=== PATIENT | female | born 1990 | race Two or more races ===

== ENCOUNTER 2025-07-24 08:09 | Outpatient (RCR) | payer MEDICAID, SELFPAY ==
--- NOTE | 2025-07-19 14:20 | CTCCONSULT_ITS ---
Patient: JANAK SOTO I. : 1990 MR#: [id number] Page 3 of 5 CONSULTATION NOTE DATE OF CONSULTATION: 07/19/2025 NAME: JANAK SOTO I. ACCOUNT: [id number] : 1990 AGE: 34 REFERRING PHYSICIAN: Isaac Tom MD PRIMARY PHYSICIAN: REASON FOR VISIT: Right lung adenocarcinoma ONCOLOGY HISTORY: DIAGNOSIS: Malignant neoplasm of unspecified part of right bronchus or lung [ICD10] C34.91 DATE OF DIAGNOSIS: 06/27/2025 STAGE/TNM: Atleast stage 3 b TREATMENT HISTORY: Care?Plan Start?Date Cycle Day Intent NSC?Pemetrexd?500?mg/m*2,?CARBO?AUC?5 07/19/2025 1 21 Induction-Primary HISTORY OF PRESENT ILLNESS: 34-year-old female with new diagnsosi of lung cancer. Patient has been having cough and right arm pain and was told that it is her allergies. Patient got physical therapy . patient is loosing weight. No hx of smoking. About 26 pounds of weight loss. No smoking. No alcohol. 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 pantoprazole - 40 mg 1 As directed 2. Promethazine Dm - 6.25-15 mg/5 mL 5 mL As directed Medications Last Reconciled by Daniela Gant MD on 07/19/2025 ALLERGIES: seafood; seafood; seafood REVIEW OF SYSTEMS: A complete 14-point review of systems was performed and is negative except as noted in interval history. PHYSICAL EXAMINATION: VITAL SIGNS: Temperature?99.3, B/P?123/86, Height?61?inches, Oxygen?Saturation?97% Weight?185?lbs PAIN: 3 - Between mild and moderate pain ECOG Performance Status: 2 - Symptomatic; ambulatory; capable of self-care; >50% of waking hrs. not in bed GENERAL APPEARANCE: Appears well, in no apparent distress, appropriately interactive. HEENT: Normocephalic, no temporal wasting, normal conjunctiva, no scleral icterus, normal hearing, lips without lesions, neck vessels visible CARDIOVASCULAR: Not assessed. PULMONARY: Normal respiratory effort, no respiratory distress or use of accessory muscles, speaking in full sentences, no tachypnea. EXTREMITIES: No pedal edema or cyanosis. SKIN: Normal skin appearance. NEUROLOGIC: Alert and oriented x4. PSHYCHIATRIC: Appropriate affect, mood normal, behavior normal, intact thought and speech. 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 As we need insurance approval and do not provide inpatient chemotherapy Patient treatment may be delayed to 3 to 4 weeks. 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 Patient can follow-up with us after her initial treatment once chemo and radiation is approved and we can start treatment Dexamethasone given to reduce obstructive symptoms of SVC Nausea medicine prescription given Extensively educated on ER precautions given ORDERS: Order # Description [id number] Comprehensive Metabolic Panel - 12 + CBC with Auto Diff + [id number] MRI + Brain + With W/O Contrast [id number] Initial PET/CT of Skull to Mid-Thigh [id number] Infusion 2.5 Hours [id number] [facility] CDX [id number] CBC + Comprehensive Metabolic Panel + CEA [id number] Lab Appointment [id number] Follow Up Appointment [id number] Infusion 2.5 Hours [id number] CBC + Comprehensive Metabolic Panel + CEA [id number] Lab Appointment [id number] Follow Up Appointment [id number] Infusion 2.5 Hours [id number] CBC + Comprehensive Metabolic Panel + CEA [id number] Lab Appointment [id number] Follow Up Appointment [id number] Infusion 2.5 Hours [id number] CBC + Comprehensive Metabolic Panel + CEA [id number] Lab Appointment [id number] Follow Up Appointment [id number] Infusion 2.5 Hours [id number] CBC + Comprehensive Metabolic Panel + CEA [id number] Lab Appointment [id number] Follow Up Appointment [id number] Infusion 2.5 Hours [id number] CBC + Comprehensive Metabolic Panel + CEA [id number] Lab Appointment [id number] Follow Up Appointment RETURN TO CLINIC: I reviewed the diagnosis, prognosis, and recommended treatment/procedure options with the patient (and/or their legal construction representative), including the potential benefits, risks, side effects and alternative therapies. We also discussed the option of no treatment and the possibility of clinical trial participation, if applicable. All questions were addressed, and they demonstrated understanding. They provided informed consent to proceed with the proposed plan of care. BILLING AND COMPLIANCE: I reviewed external records from providers outside my specialty as summarized above. I spent a total of 50 minutes on this patient?s care on the day of their visit excluding time spent related to any billed procedures. This time includes time spent with the patient as well as time spent documenting in the medical record, reviewing patients records and tests, obtaining history, placing orders, communicating with other healthcare professionals, counseling the patient, family or caregiver, and/or care coordination for the diagnoses above. Electronically Signed by: Cj Vasquez MD T: 2:18 PM CC: PCP: Referring: Isaac Tom This document was completed utilizing speech recognition software. Grammatical errors, random word insertions, pronoun errors, and incomplete sentences are an occasional consequence of this system due to software limitations, ambient noise, and hardware issues. Any formal questions or concerns about the content, text or information contained within the body of this dictation should be directly addressed to the provider for clarification.
== END 2025-08-01 23:59 | disposition home or self-care (01) ==
LOC: SCTC 08:09
PROVIDERS: PCP Family Medicine; Referring Provider Nurse Anesthetist, Certified Registered; Visit Provider Radiology Therapeutic Radiology
DX: C34.11 Malignant neoplasm of upper lobe, right bronchus or lung (principal)
CPT/HCPCS: 77470; 99213; 99214; G0463

== ENCOUNTER → 2025-07-31 | Outpatient (CLI) | payer MEDICAID, SELFPAY ==
[2025-07-30 15:53] LABS: HCG Qualitative,Urine Negative
--- NOTE | 2025-07-31 10:30 | XR_ITS ---
Study: PET/CT fusion INDICATION: Lung cancer. TECHNIQUE: Imaging 1 hour after the intravenous injection of 389 MBq of [address] for attenuation correction and anatomic correlation. CT radiation dose 484 mGy centimeters with dose reduction technique. 2247 images at 1107 hours 31 July 2025. Comparison: None. FINDINGS: The patient was imaged from the calvarial vertex to the mid thighs. There is no evidence for metastatic disease in the brain. Pathologic levels of FDG uptake are noted (without available SUV levels) in 3 anterior cervical chain left neck lymph nodes, in the left and right aspects of the anterior superior mediastinum, in the right central mediastinum has a matted cluster between the ascending aorta and right main bronchus and daren, throughout the upper right hilar region and throughout totally airless portion of the anterior segment of the right upper lobe. Additional metastatic tissue is noted in the as ago esophageal recess on the right. The apex of the right upper lobe and the entire right lower lobe and middle lobe are free from PET positive tissue and are totally aerated. There is no evidence for significant bleed PET-positive material in the abdomen and pelvis. The adrenal glands are, specifically, free from disease. There is no pleural effusion, pericardial effusion or ascites. No skeletal localization of tumor is noted. IMPRESSION: 1. Consolidative portion of the right upper lobe likely containing extensive tumor. 2. Extensive lymphadenopathy of the right hilum and mediastinum. 3. Lymphadenopathy of the left neck.
== END | disposition home or self-care (01) ==
PROVIDERS: Referring Provider Internal Medicine Hematology & Oncology; Visit Provider Internal Medicine Hematology & Oncology
DX: R59.0 Localized enlarged lymph nodes (principal); C34.91 Malignant neoplasm of unspecified part of right bronchus or lung; Z32.00 Encounter for pregnancy test, result unknown
CPT/HCPCS: 78815; 81025; A9595